=== PATIENT | female | born 1975 | race Hispanic/Latino ===

== ENCOUNTER 2016-11-24 07:30 | Inpatient (IN) | payer OTHER, MEDICAID ==
[2016-11-27] MEDS ORDERED: NACL BACTERIOSTATIC INFILTRATI ONE (06:55)
[2016-11-27] MEDS ORDERED: LACTATED RINGERS 1,000 ML IV SCH ×2 (07:00→09:00)
[2016-11-27] MEDS ORDERED: ANCEF/STERILE WATER 2 GM/20 ML IV NR (07:00)
[2016-11-27] MEDS ORDERED: LOVENOX SUB-Q NR (07:00)
[2016-11-27] MEDS ORDERED: TRANSDERM-SCOP TD NR (07:00)
[2016-11-27] MEDS ORDERED: XYLOCAINE MPF 2% ONE (07:14)
[2016-11-27] MEDS ORDERED: DIPRIVAN 10 MG/ML IV ONE (07:14)
[2016-11-27] MEDS ORDERED: ZEMURON IV ONE ×2 (07:14→09:06)
[2016-11-27] MEDS ORDERED: DILAUDID ONE ×2 (07:14→10:25)
[2016-11-27] MEDS ORDERED: MARCAINE-EPI 0.5%-1:200,000 INFILTRATI ONE ×2 (07:18)
[2016-11-27] MEDS ORDERED: XYLOCAINE 1% 20 mL INFILTRATI ONE (07:19)
[2016-11-27] MEDS ORDERED: NACL 0.9% IR ONE ×2 (07:20)
[2016-11-27 07:21] LABS: Bilirubin,Urine NEG (Negative); Blood,Urine SM (Negative); Ketones,Urine NEG (Negative); Leukocyte Esterase,Urine NEG (Negative); Mucus,Urine 3+ /HPF; Nitrite,Urine NEG (Negative); Urobilinogen,Urine < 2.0 mg/dL (<2.0)
[2016-11-27] MEDS ORDERED: VERSED IV ONE (07:22)
[2016-11-27] MEDS ORDERED: PEPCID IV SCH (07:23)
--- NOTE | 2016-11-27 07:26 | Anesthesia Day of Surgery ---
Anesthesia Day of Surgery - Day of Surgery Patient Examined: Yes Patient H&P Reviewed: Yes Patient is NPO: Yes
--- NOTE | 2016-11-27 07:26 | Anesthesia Consultation ---
Anesthesia Consult and Med Hx Date of service: 11/27/16 - Airway Anesthetic Teeth Evaluation: Good ROM Head & Neck: Adequate Mental/Hyoid Distance: Adequate Mallampati Class: Class II Intubation Access Assessment: Probably Good - Pulmonary Exam CTA: Yes - Cardiac Exam Cardiac Exam: RRR - Pre-Operative Health Status ASA Pre-Surgery Classification: ASA2 Proposed Anesthetic Plan: General - Pulmonary Hx Asthma: Yes (last treated 3 mos ago) Hx Sleep Apnea: (Had neg sleep study) - Central Nervous System Hx Back Pain: Yes (degenerative disc disease) Hx Psychiatric Problems: Yes - Other Systems Hx Alcohol Use: Yes (occas) Hx Cancer: No Hx Obesity: Yes
[2016-11-27] MEDS ORDERED: XYLOCAINE 1% 20 mL ONE (07:27)
[2016-11-27] MEDS ORDERED: MARCAINE-EPI/PF 0.5%-1:200,000 INFILTRATI ONE (07:28)
[2016-11-27] MEDS ORDERED: FLAGYL 500 MG/100 ML 500 MG/100 ML BAG IV NR (08:00)
[2016-11-27] MEDS ORDERED: NORCO PO PRN (08:30)
[2016-11-27] MEDS ORDERED: MORPHINE IV PRN (08:30)
[2016-11-27] MEDS ORDERED: APRESOLINE IV PRN (08:30)
[2016-11-27] MEDS ORDERED: DILAUDID IV PRN ×2 (09:00→10:00)
[2016-11-27] MEDS ORDERED: LOVENOX SUB-Q SCH (10:00)
[2016-11-27] MEDS ORDERED: ZOFRAN ONE (10:17)
[2016-11-27] MEDS ORDERED: DECADRON ONE (10:17)
[2016-11-27] MEDS ORDERED: LACTATED RINGERS 1,000 ML ONE (10:18)
[2016-11-27] MEDS ORDERED: ROBINUL ONE (10:20)
[2016-11-27] MEDS ORDERED: NEOSTIGMINE ONE (10:20)
[2016-11-27] MEDS ORDERED: CLEOCIN 600 MG/50 mL 600 MG/50 ML BAG IV ONE (10:30)
[2016-11-27] MEDS ORDERED: NEO SYNEPHRINE/NS Syringe(OR USE) IV ONE (10:30)
--- NOTE | 2016-11-27 10:59 | Operative Report ---
Operative Report Operative Report: Operative Report DATE OF PROCEDURE: 11/27/16 PREOPERATIVE DIAGNOSES: Morbid obesity, hiatal hernia POSTOPERATIVE DIAGNOSES: 1.same as pre-op SURGEON: Cem Castellon M.D. [employer] SUPERVISOR: Michael Corona CSA PROCEDURE: 1. laparoscopic sleeve gastrectomy 2. laparoscopic hiatal hernia repair 3. EGD ANESTHESIA: General. ESTIMATED BLOOD LOSS: <5 mL. COMPLICATIONS: None. SPECIMEN: Partial gastrectomy. FINDINGS: 1. hiatal hernia INDICATION FOR PROCEDURE: Patient is a 41-year-old female with a long history of morbid obesity. She has tried multiple efforts at weight loss without watermaster success. She is here today for sleeve gastrectomy. PROCEDURE IN DETAIL: After consent was reviewed, patient was taken back to the operating room, where patient was placed supine on the bed with both arms out. The patient's legs were doubly strapped to the bed. Patient had a foot board in place. Patient had a body warmer placed by anesthesia. Patient was then prepped and draped in normal sterile surgical fashion. After a time-out was called, An EGD was performed prior to incision that showed a normal esophagus, stomach, and duodenum with the exception of a hiatal hernia. I made a stab incision in the LUQ subcostal area and placed a Veress needle through this incision and insufflated the abdomen to 18 mmHg pressure. I then counted down a handsbreadth below the xiphoid process in the midline and slightly left lateral injected local anesthetic and made about 0.5 cm transverse incision. I then used a 5-mm Optiview trocar to enter into the abdomen. I then placed a 45-degree scope through this port and inspected the abdomen. There was no injury on entry of the abdomen. I then placed one 5-mm port in the right upper quadrant, one along the left anterior axillary line and 1 subxiphoid below the costovertebral angle. I then placed a 15-mm port about a handsbreadth right lateral and inferior to my anterior axillary port. I then placed the liver retractor through the subxiphoid port and placed the patient in full reverse Trendelenburg. The GE junction was noted to be above the level of the diaphragm. The right and left crura were skeletonized accentuating a small hiatal hernia. An anterior cruraplasty was perfromed with two figure-of-8 stitch using surgidac suture to reapproximate the crura. The stomach and 2cm of distal esophagus were resting in the abdominal cavity without tension. I then identified the pylorus and then counted off 6cm from the pylorus. I then used a LigaSure cutting device to enter into the lesser sac. At that point and then I took down the short gastrics all the way up to the left pool. Then I had anesthesia pass down a 36-Armenian bougie along the lesser curvature of the stomach. I made sure everything else was out of the abdomen except the bougie. I then created my gastric sleeve using a 60-mm laparoscopic stapler. . The sleeve looked good without any twisting or torsion. I then had anesthesia to remove the bougie. Hemostasis was obtained along the staple line. I then used Tiseel along the entirety of the staple line and some on the liver. I then removed liver grasper and took it off the field. I then removed the stomach through the 15-mm port. I then closed that fascia with a #1 PDS in a [id number] fashion using a Kevin-Amy. I then desufflated the abdomen and then removed all port sites. I then closed the incisions with 4-0 Monocryl in subcuticular fashion. I then dressed the wounds with Dermabond. Patient tolerated the procedure well and was transferred to recovery room in good and stable condition.
[2016-11-27] MEDS: ZOFRAN IV PRN ×3 (11:22→21:16)
[2016-11-27] MEDS: REGLAN IV PRN (11:33)
[2016-11-27] MEDS: FLAGYL 500 MG/100 ML 500 MG/100 ML BAG IV SCH ×2 (14:18→21:20)
[2016-11-27] MEDS: TORADOL IV SCH ×2 (15:00→21:57)
[2016-11-27] MEDS: MYLICON PO PRN (18:37)
[2016-11-28] MEDS: MYLICON PO PRN (00:27)
[2016-11-28 05:01] LABS: Basophils % (Auto) 0.5 % (0.0-1.8); Eosinophils % (Auto) 0.2 % (0.0-4.3); Hematocrit 37.6 % (30.3-42.9); Hemoglobin 12.6 gm/dl (10.1-14.3); Mean Corpuscular HGB Conc 34 % (30-34); Mean Corpuscular Hemoglobin 31 pg (28-32); Mean Corpuscular Volume 91 fl (79-97); Platelet Count 257 K/mm3 (140-440); Red Blood Count 4.14 M/mm3 (3.65-5.03); Red Cell Distribution Width 13.7 % (13.2-15.2); White Blood Count 12.1 K/mm3 (4.5-11.0)
[2016-11-28 05:09] LABS: Alanine Aminotransferase 63 units/L (7-56); Albumin 3.5 g/dL (3.9-5); Albumin/Globulin Ratio 1.3 %; Alkaline Phosphatase 58 units/L (35-129); Anion Gap 16 mmol/L; BUN/Creatinine Ratio 13.33; Blood Urea Nitrogen 8 mg/dL (7-17); Calcium 8.5 mg/dL (8.4-10.2); Carbon Dioxide 23 mmol/L (22-30); Chloride 103.4 mmol/L (98-107); Glucose 96 mg/dL (65-100); Potassium 3.6 mmol/L (3.6-5.0); Sodium 139 mmol/L (137-145); Total Protein 6.2 g/dL (6.3-8.2)
[2016-11-28] MEDS: FLAGYL 500 MG/100 ML 500 MG/100 ML BAG IV SCH (05:26)
[2016-11-28] MEDS: REGLAN IV PRN (05:28)
[2016-11-28] MEDS: TORADOL IV SCH ×2 (05:28→08:23)
[2016-11-28 08:26] VITALS: BP 106/47
--- NOTE | 2016-11-28 08:56 | Discharge Summary ---
Providers - Providers Date of Admission: 11/27/16 06:10 Date of discharge: 11/28/16 Attending physician: MARC LOPEZ 11/27/16 06:38 Consult to Anesthesiology [CONS] Routine Consulting Provider: KEVIN ANESTHESIA PEYTON JARRETT Reason For Exam: SURGERY TODAY Hospitalization Condition: Good Procedures: laparoscopic sleeve gastrectomy with hiatal hernia repair Hospital course: 41 y.o. F admitted for laparoscopic sleeve gastrectomy and hiatal hernia repair. Pt tolerated the procedure well. On POD 1 she tolerated clears, ambulated and her pain was controlled. She was discharged home on POD 1 without issues. Disposition: DC-01 TO HOME OR SELFCARE Core Measure Documentation - Palliative Care Palliative Care/ Comfort Measures: Not Applicable - Core Measures Any of the following diagnoses?: history only Exam - Physical Exam Narrative exam: Gen: A+Ox3 Cardio: RRR Lungs: CTA abd: soft, obese, incision sites cdi. incisional tenderness. no rebound no guarding . - Constitutional Vitals: Temp Pulse Resp BP Pulse Ox 98.6 F 96 H 20 106/47 91 11/28/16 08:15 11/28/16 08:22 11/28/16 08:24 11/28/16 08:22 11/28/16 08:22 Plan Activity: other (no lifting >15lbs for 6 weeks ) Diet: clear liquids (sugar free clears ) Wound: other (May shower Thursday, no soaking in the tub) Additional Instructions: Follow up for wound visit. Follow up with: NILSON CLAY [Other] - 7 Days
--- NOTE | 2016-11-28 09:22 | Progress Note ---
Subjective Date of service: 11/28/16 Interval history: No anesthetic related complaints. Objective - Constitutional Vitals: Vital Signs - 12hr 11/28/16 11/28/16 11/28/16 00:59 01:00 01:09 Temperature 98.5 F 98.5 F Pulse Rate 95 H 93 H 68 Respiratory 18 18 Rate Blood Pressure 102/51 Blood Pressure 102/51 [Left] O2 Sat by Pulse 94 93 96 Oximetry 11/28/16 11/28/16 11/28/16 06:28 08:15 08:22 Temperature 98.8 F 98.6 F Pulse Rate 93 H 96 H Respiratory 20 Rate Blood Pressure 106/55 106/47 Blood Pressure [Left] O2 Sat by Pulse 95 91 Oximetry 11/28/16 11/28/16 08:23 08:24 Temperature Pulse Rate Respiratory 18 20 Rate Blood Pressure Blood Pressure [Left] O2 Sat by Pulse Oximetry - Labs CBC & Chem 7: 11/28/16 04:30 11/28/16 04:30 Labs: Abnormal lab results 11/28/16 11/28/16 Range/Units 04:30 04:30 WBC 12.1 H (4.5-11.0) K/mm3 Lymph % (Auto) 12.6 L (13.4-35.0) % Seg Neutrophils % 80.8 H (40.0-70.0) % Seg Neutrophils # 9.7 H (1.8-7.7) K/mm3 Creatinine 0.6 L (0.7-1.2) mg/dL ALT 63 H (7-56) units/L Total Protein 6.2 L (6.3-8.2) g/dL Albumin 3.5 L (3.9-5) g/dL
[2016-11-28] MEDS ORDERED: LOVENOX SUB-Q SCH (10:00)
== END 2016-11-28 12:50 | disposition home or self-care (01) | DRG 621 ==
LOC: 3A 11-27 06:10 → 3B-SURG 11-27 11:19
PROVIDERS: ADMIT Surgery; ATTEND Surgery
PROC: 0DB64Z3 Excision of Stomach, Percutaneous Endoscopic Approach, Vertical (ICD-10-PCS; principal; 2016-11-27)
PROC: 0BQS4ZZ (ICD-10-PCS; 2016-11-27)
PROC: 0BQR4ZZ (ICD-10-PCS; 2016-11-27)
DX: E66.01 Morbid (severe) obesity due to excess calories (principal); K44.9 Diaphragmatic hernia without obstruction or gangrene; Z68.41 Body mass index [BMI] 40.0-44.9, adult
CPT/HCPCS: 36415; 80053; 81001; 85025; 88307; 94760; A4217; C9250; J0690; J1100; J1170; J1650; J1885; J2250; J2370; J2405; J2704; J2710; J2765; J7120